=== PATIENT | female | born 1985 | race Caucasian/White ===

== ENCOUNTER 2022-11-14 09:10 | Emergency (ER) | payer BC ==
[2022-11-14 09:33] VITALS: BP 125/78; PULSE 60; RESP 18; TEMP 98.2; BMI 24.5
[2022-11-14 09:34] LABS: HCG,QUALITATIVE URINE Negative
[2022-11-14 09:42] LABS: EPITHELIAL CELLS FEW /hpf
== END 2022-11-14 10:35 | disposition home or self-care (01) ==
LOC: FER 09:10
DX: R10.2 Pelvic and perineal pain (principal); R10.13 Epigastric pain; N30.00 Acute cystitis without hematuria; D25.9 Leiomyoma of uterus, unspecified; N83.201 Unspecified ovarian cyst, right side; N83.202 Unspecified ovarian cyst, left side
CPT/HCPCS: 76775-TC; 76830-TC; 81003; 81015; 84703; 87086; 99284-25